=== PATIENT | male | born 1950 | race Caucasian/White ===

== ENCOUNTER → 2020-08-26 | Outpatient (CLI) | payer MEDICARE, OTHER | LOC: KOH-I 11:27 | DX: R09.89 Other specified symptoms and signs involving the circulatory and respiratory systems (principal); R91.8 Other nonspecific abnormal finding of lung field | CPT/HCPCS: 71046 ==

== ENCOUNTER 2022-02-23 15:14 | Emergency (ER) | payer MEDICARE ==
[2022-02-23 18:00] LABS: HEMOGLOBIN 13.2 gm/dl (14.0-17.5); RED BLOOD COUNT 3.46 M/UL (4.20-5.50); WHITE BLOOD COUNT 13.1 K/UL (4.5-11.0)
[2022-02-23 18:30] LABS: BUN/CREATININE RATIO 11 (0-10)
[2022-02-23] MEDS ORDERED: CEPHALEXIN500 M1 PO (19:08)
== END 2022-02-23 19:28 | disposition home or self-care (01) ==
LOC: ER1 15:14
PROVIDERS: Physician Assistant
DX: I10 Essential (primary) hypertension (principal); R20.2 Paresthesia of skin; L03.116 Cellulitis of left lower limb; L03.115 Cellulitis of right lower limb; M06.9 Rheumatoid arthritis, unspecified; K21.9 Gastro-esophageal reflux disease without esophagitis
CPT/HCPCS: 70450; 80053; 82550; 82553; 83735; 84484; 85025; 93005; 99284